=== PATIENT | male | born 1985 | race Caucasian/White ===

== ENCOUNTER 2018-12-29 23:31 | Emergency (ER) | payer SELFPAY ==
[~2018-12-29] VITALS: Ht 170.2 cm; Wt 109.6 kg
[2018-12-29 23:37] VITALS: Ht 170.2 cm; Wt 109.6 kg
[2018-12-30] MEDS ORDERED: ONDANSETRON (ODT) 4 MG TAB ODT STA (02:02)
--- NOTE | 2018-12-30 02:02 | ERD ---
ER Documentation Chief Complaint Chief Complaint C/O GENERALIZED AP X8 MONTHS HPI This is a 33-year-old female presents to the emergency department with complaints of right-sided abdominal pain that is on and off for about a month. Stated that he is concerned and this is the reason why he came here to the emergency department. Denies headache, head injury, loss of consciousness, dizziness, neck pain, neck stiffness, throat pain, difficulty swallowing, difficulty breathing lying flat, shoulder pain, chest pain, back pain, abdominal pain, nausea, vomiting, constipation, diarrhea, urinary symptoms, loss of bowel and bladder control, trauma, injury, falls, difficulty walking due to pain, numbness or tingling sensation, calf pain, recent travel, recent major surgery in the last 3 weeks, calf pain, recent long travel, recent exposure to any illness, recent antibiotic use in the last 3 months, fever, chills, seizures. Past medical history: Surgical history: Cholecystectomy. Social: Denies smoking, use of alcoholic beverages, use of illegal drugs. ROS All systems reviewed and are negative except as per history of present illness. Medications Home Meds Active Scripts Dicyclomine HCl (Dicyclomine HCl) 10 Mg Capsule, 10 MG PO TID PRN for ABDOMINAL CRAMPING, #20 CAP Prov:NATHAN IBRAHIM 12/30/18 Omeprazole* (Omeprazole*) 40 Mg Capsule.dr, 40 MG PO DAILY, #30 CAP Prov:NATHAN IBRAHIM F 12/30/18 Ondansetron Hcl* (Zofran*) 4 Mg Tablet, 4 MG PO Q8H PRN for NAUSEA AND/OR VOMITING, #30 TAB Prov:NATHAN IBRAHIM 12/30/18 Acetaminophen* (Tylophen*) 500 Mg Capsule, 1 CAP PO Q6H PRN for PAIN AND OR ELEV ATED TEMP, #20 CAP Prov:NATHAN IBRAHIM F 12/30/18 Ibuprofen* (Motrin*) 800 Mg Tab, 800 MG PO Q6H PRN for PAIN AND OR ELEVATED TEMP, #30 TAB Prov:NATHAN IBRAHIM F 12/30/18 Reported Medications [Unknown] No Conflict Check 06/08/09 Allergies Allergies: Coded Allergies: No Known Drug Allergy (Verified Allergy, Mild, 06/08/09) PMhx/Soc History of Surgery: Yes (left ankle fx and surgery) Hx Respiratory Disorders: No Hx Cardiac Disorders: No Hx Miscellaneous Medical Probl: No Hx Alcohol Use: Yes (occasional) Hx Substance Use: No Hx Tobacco Use: Yes (occasional use) Smoking Status: Current every day smoker Physical Exam Vitals Physical Exam Const: No acute distress Head: Atraumatic Eyes: Normal Conjunctiva ENT: Normal External Ears, Nose and Mouth. Neck: Full range of motion. No meningismus. Resp: Clear to auscultation bilaterally Cardio: Regular rate and rhythm, no murmurs Abd: Soft, non tender, non distended. Normal bowel sounds Skin: No petechiae or rashes Back: No midline or flank tenderness Ext: No cyanosis, or edema Neur: Awake and alert Psych: Normal Mood and Affect Result Diagram: 12/30/1823212/30/18232 Results 24 hrs Laboratory Tests Test 12/30/18 02:33 12/30/18 03:11 White Blood Count 9.5 10^3/ul Red Blood Count 5.23 10^6/ul Hemoglobin 14.9 g/dl Hematocrit 45.1 % Mean Corpuscular Volume 86.2 fl Mean Corpuscular Hemoglobin 28.5 pg Mean Corpuscular Hemoglobin Concent 33.0 g/dl Red Cell Distribution Width 13.7 % Platelet Count 242 10^3/UL Mean Platelet Volume 10.6 fl Immature Granulocytes % 0.200 % Neutrophils % 53.5 % Lymphocytes % 35.3 % Monocytes % 9.3 % Eosinophils % 1.3 % Basophils % 0.4 % Nucleated Red Blood Cells % 0.0 /100WBC Immature Granulocytes # 0.020 10^3/ul Neutrophils # 5.1 10^3/ul Lymphocytes # 3.4 10^3/ul Monocytes # 0.9 10^3/ul Eosinophils # 0.1 10^3/ul Basophils # 0.0 10^3/ul Nucleated Red Blood Cells # 0.0 10^3/ul Sodium Level 144 mmol/L Potassium Level 3.3 mmol/L Chloride Level 109 mmol/L Carbon Dioxide Level 24 mmol/L Anion Gap 11 Blood Urea Nitrogen 20 mg/dl Creatinine 1.08 mg/dl Est Glomerular Filtrat Rate mL/min > 60 mL/min Glucose Level 101 mg/dl Calcium Level 9.5 mg/dl Total Bilirubin 0.8 mg/dl Direct Bilirubin 0.00 mg/dl Indirect Bilirubin 0.8 mg/dl Aspartate Amino Transf (AST/SGOT) 41 IU/L Alanine Aminotransferase (ALT/SGPT) 65 IU/L Alkaline Phosphatase 85 IU/L Total Protein 8.6 g/dl Albumin 4.9 g/dl Globulin 3.70 g/dl Albumin/Globulin Ratio 1.32 Amylase Level 75 U/L Lipase 75 U/L Urine Color JODIE Urine Clarity SLIGHTLY CLOUDY Urine pH 5.0 Urine Specific [place] 1.030 Urine Ketones TRACE mg/dL Urine Nitrite NEGATIVE mg/dL Urine Bilirubin NEGATIVE mg/dL Urine Urobilinogen NEGATIVE mg/dL Urine Leukocyte Esterase NEGATIVE [place]/ul Urine Microscopic RBC 1 /HPF Urine Microscopic WBC 3 /HPF Urine Bacteria FEW /HPF Urine Mucus MANY /HPF Urine Hemoglobin 2+ mg/dL Urine Glucose NEGATIVE mg/dL Urine Total Protein 1+ mg/dl Current Medications Medications Dose Sig/Charles Start Time Status Last (Trade) Ordered Route PRN Stop Time Admin Dose Reason Admin Ondansetron 4 mg ONCE STAT 12/30/18 DC 12/30/18 HCl (Zofran ODT 02:02 12/30/18 02:19 Odt) 02:04 Famotidine 40 mg ONCE ONCE 12/30/18 DC 12/30/18 (Pepcid) PO 02:30 12/30/18 02:20 02:31 40 ml ONCE ONCE 12/30/18 DC 12/30/18 Miscellaneous PO 02:30 12/30/18 02:20 Medication 02:31 (Gi Cocktail (2)) Potassium 40 meq ONCE STAT 12/30/18 DC 12/30/18 Chloride PO 03:57 12/30/18 04:06 (Klor-Con 20) 03:58 Procedures/MDM Diagnostic tests: Urinalysis: Reviewed Blood works: Reviewed. Ultrasound of the abdomen/limited: Status post cholecystectomy without biliary duct dilatation. Hepatomegaly with hepatic fatty infiltration. No focal hepatic lesions. Unremarkable right kidney. Nonvisualization of pancreas due to overlying bowel gas. CT of the abdomen and pelvis: Status post prior cholecystectomy. Biliary duct dilatation. Mild hepatomegaly with hepatic fatty infiltration. Old granulomas disease superior right lobe of the liver. No hepatic masses. No calcified urinary calculi or obstructive uropathy. No gastrointestinal disease. This case was discussed with my supervising physician, Dr. Rachael Lorenz who agreed with my medical decision making. Treatment: Zofran. Pepcid. GI cocktail. Potassium oral//Fever. Re-evaluation: Denies abdominal pain. No abdominal tenderness. Stated that she feels much better at this time and that she is ready and comfortable to go home. Differential diagnosis I have low suspicion for cholecystitis, pancreatitis, diverticulitis, appendicitis, bowel obstruction, sepsis. Final diagnosis: Abdominal pain. Prescription: Omeprazole. Motrin. Zofran. Bentyl. Follow-up with PCP in the next 24-48 hours. Come back here in the emergency department for any new symptoms or any worsening symptoms. All questions and concerns were answered. Patient and family members verbalized understanding and agreed with plan of care. Hemodynamically stable on discharge. Departure Diagnosis: Primary Impression: Abdominal pain Condition: Stable Additional Instructions: Follow-up with PCP in the next 24-48 hours. Come back here in the emergency department for any new symptoms or any worsening symptoms. NATHAN IBRAHIM Dec 30, 2018 02:02
[2018-12-30] MEDS ORDERED: FAMOTIDINE 20 MG TAB PO ONE (02:30)
[2018-12-30] MEDS ORDERED: LIDOCAINE/MYLANTA 40 ML BTL PO ONE (02:30)
[2018-12-30] MEDS ORDERED: POTASSIUM CHLORIDE (SR) 20 MEQ TAB PO STA (03:57)
[2018-12-30] MEDS ORDERED: IBUP800T48 PO (03:58)
[2018-12-30] MEDS ORDERED: ONDA4TAB8 PO (03:59)
[2018-12-30] MEDS ORDERED: ACET500C5 PO (03:59)
[2018-12-30] MEDS ORDERED: OMEP40CA6 PO (03:59)
[2018-12-30] MEDS ORDERED: DICY10CA40 PO (03:59)
[2018-12-30 04:07] VITALS: BP 138/94; PULSE 78; RESP 18
== END 2018-12-30 04:12 | disposition home or self-care (01) ==
LOC: FTE 23:31
DX: R10.84 Generalized abdominal pain (principal); F17.210 Nicotine dependence, cigarettes, uncomplicated
CPT/HCPCS: 36415; 74176; 76705; 80053; 81001; 82150; 83690; 85025